=== PATIENT | male | born 1990 | race Caucasian/White ===

== ENCOUNTER 2022-07-22 19:56 | Emergency (ER) | payer BC ==
[~2022-07-22] VITALS: Ht 185.4 cm; Wt 86.2 kg
--- NOTE | 2022-07-22 20:24 | NUR ---
SEIZURE PRECAUTION INITIATED
--- NOTE | 2022-07-22 20:30 | NUR ---
[id number] FROM HOME C/O WITNESSED SEIZURE 1 HR AGO. NO HX SEIZURE. +ORAL TRAUMA-INCONTINENCE. SUPERFICIAL ABRASION NOTED TO L ARM. AWAKE AND ALERT X4 SIEXURE PRECAUTIONS IN PLACE.
--- NOTE | 2022-07-22 20:35 | NUR ---
20G IV STARTED AT LW. BLOOD DRAWN AND SENT TO LAB
[2022-07-22] MEDS ORDERED: LORAZEPAM INJ 2 MG/ML VIAL ONE ×2 (20:52→22:20)
[2022-07-22 20:59] LABS: BASOPHILS % (AUTO) 0.2 % (0.0-2.0); EOSINOPHILS % (AUTO) 0.9 % (0.0-6.0); HEMATOCRIT 43 % (39-51); HEMOGLOBIN 14.5 g/dL (13.5-17.5); LYMPHOCYTES # (AUTO) 1.3 K/uL (0.8-4.8); LYMPHOCYTES % (AUTO) 23.3 % (20.0-44.0); MEAN CORPUSCULAR HGB CONC 34 g/dl (31.0-36.0); MEAN CORPUSCULAR VOLUME 92 fL (80-96); MONOCYTES # (AUTO) 0.4 K/uL (0.1-1.30); MONOCYTES % (AUTO) 7.3 % (2.0-12.0); NEUTROPHILS # (AUTO) 3.7 K/uL (1.8-8.9); NEUTROPHILS % (AUTO) 68.3 % (43.0-81.0); PLATELET COUNT (AUTO) 115 K/uL (150-450); RED BLOOD CELL COUNT(AUTO) 4.73 MIL/uL (4.5-6.0); WHITE BLOOD COUNT (AUTO) 5.4 K/uL (4.3-11.0)
[2022-07-22] MEDS ORDERED: LORAZEPAM INJ 2 MG/ML VIAL IV ONE ×2 (21:00→22:30)
[2022-07-22] MEDS ORDERED: CHLORDIAZEPOXIDE HCL 25 MG CAPSULE PO ONE (21:00)
[2022-07-22] MEDS ORDERED: IV NS 0.9% 1,000 ML BAG IV ONE (21:00)
[2022-07-22] MEDS ORDERED: CHLORDIAZEPOXIDE HCL 25 MG CAPSULE ONE (21:06)
[2022-07-22 21:11] LABS: CALCIUM, SERUM 8.9 mg/dL (8.5-10.1); CARBON DIOXIDE 26 mmol/L (21-32); CHLORIDE 105 mmol/L (98-107); CREATININE 0.9 mg/dL (0.6-1.3); GLUCOSE 118 mg/dL (74-106); POTASSIUM 3.5 mmol/L (3.5-5.1); SODIUM SERUM 139 mmol/L (136-145); UREA NITROGEN, BLOOD 13 mg/dL (7-18)
[2022-07-22 21:17] LABS: ALANINE AMINOTRANSFERASE 17 U/L (12-78); ALBUMIN 3.9 g/dL (3.4-5.0); ALCOHOL, BLOOD < 3 mg/dL (0-0); ALKALINE PHOSPHATASE 94 U/L (46-116); ASPARTATE AMINOTRANSFERASE 30 U/L (15-37); BILIRUBIN,DIRECT 0.4 mg/dL (0.0-0.2); BILIRUBIN,TOTAL 1.6 mg/dL (0.2-1.0)
[2022-07-22 22:31] LABS: BILIRUBIN,URINE NEGATIVE (NEGATIVE); COLOR,URINE YELLOW (YELLOW); LEUKOCYTE ESTERASE ,URINE NEGATIVE (NEGATIVE); NITRITE, URINE NEGATIVE (NEGATIVE); PROTEIN,URINE NEGATIVE (NEGATIVE); UGLUCOSE NEGATIVE (NEGATIVE)
[2022-07-22 22:44] LABS: BACTERIA,URINE Rare /HPF (None Seen); SQUAMOUS EPITHELIAL CELL,UR Few /HPF (None Seen); WBC,URINE 0-2 /HPF (0-3)
[2022-07-22] MEDS ORDERED: CHLO25CA22 PO (23:09)
--- NOTE | 2022-07-22 23:18 | NUR ---
Patient discharged to home in stable condition. Written and verbal after care instructions given. Patient verbalizes understanding of instruction.IV removed. Catheter intact and site benign. Pressure and 4x4 applied to site. No bleeding noted.
[2022-07-22 23:23] VITALS: BP 128/84
== END 2022-07-22 23:23 | disposition home or self-care (01) ==
LOC: ER 20:10
DX: G40.909 Epilepsy, unspecified, not intractable, without status epilepticus (principal); F13.239 Sedative, hypnotic or anxiolytic dependence with withdrawal, unspecified; F41.9 Anxiety disorder, unspecified; Z60.2 Problems related to living alone
CPT/HCPCS: 99285; 96374; 96361; 96376; 70450; 85025; 80048; 80076; 81001; 36415; 80143; 80320; 80307; J2060 ×2; J7030; G0480